=== PATIENT | female | born 1965 | race African-American/Black ===

== ENCOUNTER 2017-09-16 10:23 | Emergency (ER) | payer BC ==
[~2017-09-16] VITALS: Ht 167.6 cm; Wt 84.8 kg
[~2017-09-16 10:23] MED LIST: ALPR0.25; ATOR10TA PO; [UNRECOGNIZED DRUG - REMARK]
[2017-09-16 10:26] VITALS: BP 123/73
== END 2017-09-16 11:36 | disposition home or self-care (01) ==
LOC: ER 10:25
DX: J06.9 Acute upper respiratory infection, unspecified (principal); F41.9 Anxiety disorder, unspecified; F32.9 Major depressive disorder, single episode, unspecified
CPT/HCPCS: 99282; A4606; Z7610

== ENCOUNTER 2018-02-28 08:15 | Emergency (ER) | payer BC, OTHER ==
[~2018-02-28] VITALS: Ht 167.6 cm; Wt 88.5 kg
--- NOTE | 2018-02-28 08:37 | NUR ---
PATIENT TO ED DT-- "I THINK I HAVE BLADDER INFECTION." DYSURIA AND URGENCY FOR THE PAST WEEK.[email or web address]
[2018-02-28 08:43] VITALS: BP 132/90
== END 2018-02-28 08:43 | disposition home or self-care (01) ==
LOC: ER 08:21
DX: N39.0 Urinary tract infection, site not specified (principal); F41.9 Anxiety disorder, unspecified; F32.9 Major depressive disorder, single episode, unspecified; Z88.6 Allergy status to analgesic agent; Z79.899 Other long term (current) drug therapy
CPT/HCPCS: 87086; 99283; A4606; Z7610

== ENCOUNTER 2021-01-19 20:12 | Emergency (ER) | payer MEDICAID, OTHER ==
[~2021-01-19] VITALS: Ht 269.2 cm; Wt 89.8 kg
--- NOTE | 2021-01-19 20:25 | NUR ---
PT BIBS FROM HOME C/O INTERMITTENT, NON RADIATING R AND L UPPER CHEST PAIN, STARTED 2 DAYS AGO, NOT PRESENT AT THIS TIME, BUT STATES ABOUT 8/10 WHEN PRESENT. SEEN AND EXAMINED BY DR YANG, AAO X 4, BREATHING EVEN AND UNLABORED. PT ATTACHED TO MONITOR AND PULSE OX. SATURATION AT 100% ON ROOM AIR. WILL CONTINUE TO MONITOR AND CARRY OUT MD ORDERS.
--- NOTE | 2021-01-19 20:35 | NUR ---
EKG DONE AT BEDSIDE, URINE SPECIMEN SENT TO LAB.
--- NOTE | 2021-01-19 20:45 | NUR ---
IV LINE INSERTED AT LAC 20G, BLOOD COLLECTED AND SENT TO LAB.
[2021-01-19 20:57] LABS: EOSINOPHILS % (AUTO) 0.4 % (0.0-6.0); HEMATOCRIT 40 % (33-45); HEMOGLOBIN 13.6 g/dL (11.5-14.8); LYMPHOCYTES # (AUTO) 0.8 K/uL (0.8-4.8); LYMPHOCYTES % (AUTO) 23.8 % (20.0-44.0); MEAN CORPUSCULAR HGB CONC 34 g/dl (31.0-36.0); MEAN CORPUSCULAR VOLUME 90 fL (82-100); MONOCYTES # (AUTO) 0.3 K/uL (0.1-1.30); MONOCYTES % (AUTO) 7.9 % (2.0-12.0); NEUTROPHILS # (AUTO) 2.3 K/uL (1.8-8.9); NEUTROPHILS % (AUTO) 66.9 % (43.0-81.0); PLATELET COUNT (AUTO) 207 K/uL (150-450); RED BLOOD CELL COUNT(AUTO) 4.48 MIL/uL (4.0-5.2); WHITE BLOOD COUNT (AUTO) 3.4 K/uL (4.3-11.0)
[2021-01-19 21:30] LABS: CALCIUM, SERUM 8.8 mg/dL (8.5-10.1); CARBON DIOXIDE 24 mmol/L (21-32); CHLORIDE 100 mmol/L (98-107); CREATININE 0.9 mg/dL (0.6-1.3); GLUCOSE 107 mg/dL (74-106); POTASSIUM 3.6 mmol/L (3.5-5.1); SODIUM SERUM 137 mmol/L (136-145); UREA NITROGEN, BLOOD 9 mg/dL (7-18)
--- NOTE | 2021-01-19 21:31 | NUR ---
CALLED LAB FOR SPECIMEN HAND FORMER HELPER
[2021-01-19] MEDS ORDERED: AZIT500T PO (22:13)
[2021-01-19] MEDS ORDERED: DEXA4TAB PO (22:13)
[2021-01-19] MEDS ORDERED: IPRA12.9 INH (22:13)
--- NOTE | 2021-01-19 22:25 | NUR ---
Patient discharged to home in stable condition. Written and verbal after care instructions given. Patient verbalizes understanding of instruction. Pt ambulatory with a steady gait.
[2021-01-19 22:31] VITALS: BP 129/87
== END 2021-01-19 22:25 | disposition home or self-care (01) ==
LOC: ER 20:16
DX: U07.1 COVID-19 (principal); R07.9 Chest pain, unspecified; E78.5 Hyperlipidemia, unspecified; Z88.6 Allergy status to analgesic agent; F41.9 Anxiety disorder, unspecified; F32.9 Major depressive disorder, single episode, unspecified
CPT/HCPCS: 36415; 71045; 80048; 84484; 85025; 87426; 93005; 99285; C9803

== ENCOUNTER 2024-01-16 19:10 | Emergency (ER) | payer MEDICAID ==
[~2024-01-16] VITALS: Ht 167.6 cm; Wt 88.5 kg
[~2024-01-16 19:10] MED LIST changes: +AZIT500T PO; +DEXA4TAB PO; +IPRA12.9 INH
[2024-01-16 21:38] LABS: BASOPHILS # (AUTO) 0.1 K/uL (0.0-0.2); BASOPHILS % (AUTO) 1.1 % (0.0-2.0); EOSINOPHILS # (AUTO) 0.1 K/uL (0.0-0.7); EOSINOPHILS % (AUTO) 2.5 % (0.0-6.0); HEMATOCRIT 39 % (33-45); LYMPHOCYTES # (AUTO) 2.1 K/uL (0.8-4.8); LYMPHOCYTES % (AUTO) 34.8 % (20.0-44.0); MEAN CORPUSCULAR HEMOGLOBIN 30 PG (26.0-33.0); MEAN CORPUSCULAR HGB CONC 34 g/dl (31.0-36.0); MEAN CORPUSCULAR VOLUME 89 fL (82-100); MONOCYTES # (AUTO) 0.5 K/uL (0.1-1.30); MONOCYTES % (AUTO) 8.3 % (2.0-12.0); NEUTROPHILS # (AUTO) 3.2 K/uL (1.8-8.9); NEUTROPHILS % (AUTO) 53.3 % (43.0-81.0); PLATELET COUNT (AUTO) 240 K/uL (150-450); RED BLOOD CELL COUNT(AUTO) 4.31 MIL/uL (4.0-5.2); RED CELL DISTRIBUTION WIDTH 12.7 % (11.5-15.0)
[2024-01-16] MEDS: IV NS 0.9% 1,000 ML IV ONE (21:43)
[2024-01-16 21:46] LABS: CALCIUM, SERUM 9.1 mg/dL (8.5-10.1); CREATININE 0.8 mg/dL (0.6-1.3); POTASSIUM 3.6 mmol/L (3.5-5.1)
[2024-01-16 21:54] LABS: ALBUMIN 3.2 g/dL (3.4-5.0); BILIRUBIN,TOTAL 0.3 mg/dL (0.2-1.0); TOTAL PROTEIN, SERUM 6.9 g/dL (6.4-8.2)
[2024-01-16 22:29] LABS: LACTIC ACID 0.9 mmol/L (0.4-2.0)
[2024-01-16] MEDS ORDERED: KETOROLAC TROMETHAMINE INJ 30 MG/ML VIAL IM ONE (23:00)
[2024-01-16 23:12] VITALS: BP 139/79; TEMP 98.1; O2SAT 98
== END 2024-01-16 23:13 | disposition home or self-care (01) ==
LOC: ER 19:41
DX: R42 Dizziness and giddiness (principal); R51.9 Headache, unspecified; R11.2 Nausea with vomiting, unspecified; E78.5 Hyperlipidemia, unspecified; F32.A Depression, unspecified; F41.9 Anxiety disorder, unspecified; Z77.098 Contact with and (suspected) exposure to other hazardous, chiefly nonmedicinal, chemicals; Z88.6 Allergy status to analgesic agent
CPT/HCPCS: 99283; 85025; 83605; 36415; 80053; 84484; J7030

== ENCOUNTER 2024-12-10 10:28 | Emergency (ER) | payer MEDICAID ==
[~2024-12-10] VITALS: Ht 167.6 cm; Wt 79.4 kg
[2024-12-10] MEDS ORDERED: CYCL5TAB PO (11:02)
[2024-12-10] MEDS ORDERED: ACETAMINOPHEN ES 500 MG TABLET ONE (11:04)
[2024-12-10] MEDS ORDERED: CYCLOBENZAPRINE 10 MG TABLET ONE (11:04)
[2024-12-10] MEDS: CYCLOBENZAPRINE 10 MG TABLET PO ONE (11:05)
[2024-12-10] MEDS: ACETAMINOPHEN ES 500 MG TABLET PO ONE (11:11)
[2024-12-10 11:29] VITALS: BP 141/98; TEMP 97.9; O2SAT 100
== END 2024-12-10 11:30 | disposition home or self-care (01) ==
LOC: ER 10:35
DX: M54.50 Low back pain, unspecified (principal); E78.5 Hyperlipidemia, unspecified; F32.A Depression, unspecified; F41.9 Anxiety disorder, unspecified; Z79.52 Long term (current) use of systemic steroids; Z79.899 Other long term (current) drug therapy; Z88.6 Allergy status to analgesic agent; V43.52XA Car driver injured in collision with other type car in traffic accident, initial encounter; Y93.89 Activity, other specified; Y92.488 Other paved roadways as the place of occurrence of the external cause; Y99.8 Other external cause status